=== PATIENT | male | born 1940 | race Caucasian/White ===

== ENCOUNTER 2017-07-03 09:47 | Emergency (ER) | payer MEDICARE ==
--- NOTE | 2017-07-03 10:36 | ED ---
Lower Extremity - HPI Summary HPI Summary: 77-year-old male presents with lesion to right lower leg for the past week. Family states that has the area has been actively bleeding. Family denies any injury. Family has also been increased swelling in his legs. Patient is still able to ambulate. Patient denies any pain. no fever or chills. Patient denies any chest pain or shortness of breath. Family denies any history of congestive heart failure. Patient is not on a blood thinner. No rash. - History of Current Complaint Chief Complaint: EDExtremityLower Stated Complaint: SORE ON LEG Time Seen by Provider: 07/03/17 10:01 Pain Intensity: 0 - Allergies/Home Medications Allergies/Adverse Reactions: Allergies Allergy/AdvReac Type Severity Reaction Status Date / Time MS Sulfa Antibiotics Allergy Intermediate ?hives per Verified 10/25/15 18:09 [Sulfa Antibiotics] family PMH/Surg Hx/FS Hx/Imm Hx Endocrine/Hematology History: Denies: Hx Diabetes Cardiovascular History: Reports: Hx Coronary Artery Disease, Hx Myocardial Infarction, Other Cardiovascular Problems/Disorders - cardiac stent Denies: Hx Hypertension, Hx Pacemaker/ICD History: Denies: Hx Dialysis, Hx Renal Disease Musculoskeletal History: Reports: Hx Arthritis, Other Musculoskeletal History - WALKS WITH CANE, UNSURE WHAT EXACTLY IS WRONG WITH LEGS Sensory History: Reports: Hx Hearing Aid Neurological History: Reports: Hx Transient Ischemic Attacks (TIA), Other Neuro Impairments/Disorders - tia ,new dx mild alzheimers Psychiatric History: Denies: Hx Panic Disorder - Cancer History Cancer Type, Location and Year: bladder cancer dx 2011 no radiation or chemo treatment DCG installation in bladder 2011,? effecting ureter per family Hx Chemotherapy: No Hx Radiation Therapy: No - Surgical History Surgery Procedure, Year, and Place: bladder cancer removal malignancy, knee right 1970, cardiac stent,LT [facility]NEE Infectious Disease History: No Infectious Disease History: Denies: Traveled Outside the [place] in Last 30 Days - Family History Known Family History: Positive: Cardiac Disease - CAD FATHER/BHROTHER - Social History Alcohol Use: None Hx Substance Use: No Substance Use Type: Reports: None Hx Tobacco Use: No Smoking Status (MU): Never Smoked Tobacco Review of Systems Negative: Fever Negative: Chest Pain Negative: Shortness Of Breath Positive: Edema - lower legs Positive: Other - lesion right leg All Other Systems Reviewed And Are Negative: Yes Physical Exam Triage Information Reviewed: Yes Vital Signs On Initial Exam: Initial Vitals Temp Pulse Resp BP Pulse Ox 99.2 F 73 16 119/63 99 07/03/17 09:50 07/03/17 09:50 07/03/17 09:50 07/03/17 09:50 07/03/17 09:50 Vital Signs Reviewed: Yes Appearance: Positive: Well-Appearing Skin: Positive: Warm, Dry, Other - small scab on right lower leg with no surrounding erythema Head/Face: Positive: Normal Head/Face Inspection Eyes: Positive: Normal, Conjunctiva Clear Respiratory/Lung Sounds: Positive: Clear to Auscultation, Breath Sounds Present Cardiovascular: Positive: Normal, RRR Musculoskeletal: Positive: Strength/ROM Intact - bilateral legs, Edema Left, Edema Right, Other - equal +2 pitting edema bilateral legs, good pulses. Negative: Santa Sign Left, Santa Sign Right Diagnostics - Vital Signs Vital Signs Temp Pulse Resp BP Pulse Ox 07/03/17 09:50 99.2 F 73 16 119/63 99 - Laboratory Lab Statement: Any lab studies that have been ordered have been reviewed, and results considered in the medical decision making process. - Ultrasound No standard instances Ultrasound Interpretation: No Acute Changes Ultrasound Interpretation Completed By: Radiologist Lower Extremity Course/Dx - Course Course Of Treatment: 77-year-old male presents with lesion to right lower leg for the past week. Family states that has the area has been actively bleeding. Family denies any injury. Family has also been increased swelling in his legs. Patient is still able to ambulate. Patient denies any pain. no fever or chills. Patient denies any chest pain or shortness of breath. Family denies any history of congestive heart failure. Patient is not on a blood thinner. No rash. on exam has small scab on right leg. +2 pitting edema lower legs. u/s right normal. patient refused lab work. discussed with family and will have follow up with primary for lab work as patient is becoming agitated. patient understand and agrees with plan. - Diagnoses Differential Diagnosis/HQI/PQRI: Positive: Strain, Other - CHF Provider Diagnoses: Bilateral leg edema Discharge - Discharge Plan Condition: Good Disposition: HOME Patient Education Materials: Leg Edema (ED) Referrals: Robb Bates MD [Primary Care Provider] - Additional Instructions: Keep lesion clean Elevate legs Use compression socks Take tyenlol for pain every 6 hours follow up with primary within 5 days Return to ED if develop any new or worsening symptoms
--- NOTE | 2017-07-03 11:25 | RAD ---
INDICATION: Right leg swelling. COMPARISON: There are no prior studies available for comparison. TECHNIQUE: Multiple real-time, color flow and Doppler tracings of the right lower extremity were obtained. FINDINGS: The common femoral, femoral, profunda femoral and popliteal veins all demonstrate normal compressibility, augmentation with compression and phasic response with respiration. The posterior tibial and peroneal veins demonstrate normal compressibility and augmentation with compression. Examination of the peroneal veins is limited. IMPRESSION: NO EVIDENCE FOR DEEP VENOUS THROMBOSIS. SLIGHTLY LIMITED EXAM OF THE CALF.
[2017-07-03 12:08] VITALS: BP 138/75
== END 2017-07-03 12:08 | disposition home or self-care (01) ==
LOC: ED 09:47
DX: R60.0 Localized edema (principal); Z88.2 Allergy status to sulfonamides
CPT/HCPCS: 99283

== ENCOUNTER 2017-07-25 13:04 | Emergency (ER) | payer MEDICARE ==
[2017-07-25] MEDS ORDERED: Haloperidol TAB* 1 MG PO ONE (13:42)
[2017-07-25] MEDS ORDERED: Tetan/Diph/Pertus SYR(Tdap)* 0.5 ML SYR(BOOSTRIX) use SYR IM ONE (14:19)
--- NOTE | 2017-07-25 14:20 | RAD ---
HISTORY: Low back pain, history of prostate cancer COMPARISONS: MRI of the lumbar spine dated September 07, 2011 VIEWS: 1 , frontal view of the lumbar spine. According to the technologist notes, the patient was unable to tolerate any further imaging FINDINGS: ALIGNMENT: There is a mild levoscoliotic curvature of the spine. VERTEBRAL BODIES: There is preservation of the vertebral body heights. There is anterolateral marginal osteophyte formation. JOINTS: There is diffuse facet osteoarthritis. INTERVERTEBRAL DISCS: There is diffuse loss of intervertebral disc height. SOFT TISSUE: Unremarkable. OTHER: The pelvis is unremarkable. The lung bases are clear. IMPRESSION: LIMITED SINGLE FRONTAL PROJECTION OF THE LUMBAR SPINE. DEGENERATIVE DISC DISEASE AND OSTEOARTHRITIS.
[2017-07-25 14:28] LABS: ABS Basophils 0.1 10^3/ul (0-0.2); ABS Eosinophils 0.1 10^3/ul (0-0.6); ABS Lymphocytes 3.2 10^3/ul (1.0-4.8); ABS Monocytes 0.6 10^3/ul (0-0.8); ABS Neutrophils 5.4 10^3/ul (1.5-7.7); ABS Nucleated RBC 0 10^3/ul; Eosinophil % 1.1 % (0-6); Hematocrit 39 % (42-52); Hemoglobin 13.2 g/dl (14.0-18.0); Mean Corpuscular HGB Conc 34 g/dl (31-36); Mean Corpuscular Hemoglobin 30 pg (27-31); Mean Corpuscular Volume 89 fL (80-94); Mean Platelet Volume 7 um3 (7.4-10.4); Nucleated Red Blood Cells % 0; Platelet Count 284 10^3/ul (150-450); Red Blood Count 4.38 10^6/ul (4.0-5.4); Red Cell Distribution Width 13 % (10.5-15); White Blood Count 9.4 10^3/ul (3.5-10.8)
[2017-07-25 14:42] LABS: EGFR Non-African American 88.4 (>60)
[2017-07-25 14:59] VITALS: BP 153/84
--- NOTE | 2017-08-01 23:39 | ED ---
Siri Wells Julia, scribed for Robb Gonzalez MD on 07/25/17 at 1346 . Complex/Multi-Sys Presentation - HPI Summary HPI Summary: This patient is a 77 year old M presenting to [facility] accompanied by his s/p fall at 02:00 this morning with a right facial laceration. Patient denies LOC His reports improved bleeding from initial time of laceration. She states that his current mental status is usual for him. She additionally reports back pain for the past couple months that intermittently radiates to the RLE. Patient denies current back pain. Patient has unstable gait at baseline. Patient has hx of Alzheimers. Patient was referred from Dr. Bates. - History Of Current Complaint Chief Complaint: EDFlankPain Time Seen by Provider: 07/25/17 13:35 Hx Obtained From: Patient, Family/Licensed Master Social Worker Hx From Patient Unobtainable Due To: Altered Mental Status - Alzheimer's Onset/Duration: Sudden Onset, Other - back pain for months Location: Negative - denies pain, Pain At: - back Associated Signs And Symptoms: Positive: Back Pain, Other - laceration - Allergies/Home Medications Allergies/Adverse Reactions: Allergies Allergy/AdvReac Type Severity Reaction Status Date / Time Sulfa (Sulfonamide Allergy Hives Verified 07/25/17 13:32 Antibiotics) Home Medications: Home Medications Donepezil TAB* [Aricept 5 MG TAB*] 10 mg PO DAILY 07/25/17 [History Confirmed ] Memantine TAB* [Namenda TAB*] 10 mg PO BID 07/25/17 [History Confirmed 07/25/17] Multivitamins/Minerals TAB* [Theragran/minerals TAB*] 1 tab PO DAILY 07/25/17 [ History Confirmed 07/25/17] Nitroglycerin TAB 0.4 MG* 0.4 mg SL Q5M PRN 07/25/17 [History Confirmed 07/25/17 ] PMH/Surg Hx/FS Hx/Imm Hx Endocrine/Hematology History: Denies: Hx Diabetes Cardiovascular History: Reports: Hx Coronary Artery Disease, Hx Myocardial Infarction, Other Cardiovascular Problems/Disorders - cardiac stent Denies: Hx Hypertension, Hx Pacemaker/ICD History: Denies: Hx Dialysis, Hx Renal Disease Musculoskeletal History: Reports: Hx Arthritis, Other Musculoskeletal History - WALKS WITH CANE, UNSURE WHAT EXACTLY IS WRONG WITH LEGS Sensory History: Reports: Hx Hearing Aid Neurological History: Reports: Hx Transient Ischemic Attacks (TIA), Other Neuro Impairments/Disorders - alzheimers Psychiatric History: Denies: Hx Panic Disorder - Cancer History Cancer Type, Location and Year: bladder cancer dx 2011 no radiation or chemo treatment DCG installation in bladder 2011,? effecting ureter per family Hx Chemotherapy: No Hx Radiation Therapy: No - Surgical History Surgery Procedure, Year, and Place: bladder cancer removal malignancy, knee right 1970, cardiac stent,LT KNEE Infectious Disease History: No Infectious Disease History: Denies: Traveled Outside the [place] in Last 30 Days - Family History Known Family History: Positive: Cardiac Disease - CAD FATHER/BROTHER - Social History Alcohol Use: None Hx Substance Use: No Substance Use Type: Reports: None Hx Tobacco Use: No Smoking Status (MU): Never Smoked Tobacco Review of Systems Positive: Myalgia - back pain Positive: Other - laceration to right face All Other Systems Reviewed And Are Negative: Yes Physical Exam - Summary Physical Exam Summary: Appearance: Well appearing, no pain distress, patient is agitated and confused Skin: warm, dry, reflects adequate perfusion Head/face: linear laceration to right cheek without bleeding Eyes: EOMI, CHRISTINE ENT: normal Neck: supple, non-tender Respiratory: CTA, breath sounds present Cardiovascular: RRR, pulses symmetrical Abdomen: non-tender, soft Bowel: present Musculoskeletal: normal, strength/ROM intact Neuro: normal, sensory motor intact, A&Ox3 Triage Information Reviewed: Yes Vital Signs On Initial Exam: Initial Vitals Temp Pulse Resp BP Pulse Ox 97.6 F 75 18 146/91 98 07/25/17 13:10 07/25/17 13:10 07/25/17 13:10 07/25/17 13:10 07/25/17 13:10 Vital Signs Reviewed: Yes Diagnostics - Vital Signs Vital Signs Temp Pulse Resp BP Pulse Ox 07/25/17 13:30 161/92 07/25/17 13:10 97.6 F 75 18 146/91 98 - Laboratory Result Diagrams: 07/25/17 14:18 07/25/17 14:18 Lab Statement: Any lab studies that have been ordered have been reviewed, and results considered in the medical decision making process. Complex Multi-Symp Course/Dx Course Of Treatment: Patient presents with facial laceration s/p fall around 02: 00 this morning. Patient and deny LOC. reports back pain that intermittently radiates to the RLE for the past two months. Bloodwork was obtained and was unremarkable. Imaging was unattainable as patient was uncooperative and unable to remain still. Laceration was not repaired, as the wound occured roughly 12 hours ago. Patient was given Haldol and a Tetnus shot. - Diagnoses Provider Diagnoses: OA (osteoarthritis of spine), Facial laceration, History of prostate cancer, Dementia Discharge - Discharge Plan Condition: Good Disposition: HOME Prescriptions: Haloperidol TAB* [Haldol TAB*] 1 mg PO TID PRN 20 Days #60 tab PRN Reason: Agitation - Dangerous Patient Education Materials: Laceration (ED), Alzheimer Disease (DC) Referrals: Robb Bates MD [Primary Care Provider] - The documentation as recorded by the Siri marsh Julia accurately reflects the service I personally performed and the decisions made by , Robb Gonzalez MD.
== END 2017-07-25 14:58 | disposition home or self-care (01) ==
LOC: ED 13:04
DX: S01.81XA Laceration without foreign body of other part of head, initial encounter (principal); M51.36 Other intervertebral disc degeneration, lumbar region; X58.XXXA Exposure to other specified factors, initial encounter; Y92.9 Unspecified place or not applicable; G30.9 Alzheimer's disease, unspecified; F02.80 Dementia in other diseases classified elsewhere, unspecified severity, without behavioral disturbance, psychotic disturbance, mood disturbance, and anxiety; M54.9 Dorsalgia, unspecified; M47.9 Spondylosis, unspecified; Z85.46 Personal history of malignant neoplasm of prostate; I25.2 Old myocardial infarction; I25.10 Atherosclerotic heart disease of native coronary artery without angina pectoris
CPT/HCPCS: 36415; 72100; 80053; 85025; 90471; 90715; 99282; A9270-GY

== ENCOUNTER 2017-09-07 13:12 | Inpatient (IN) | payer MEDICARE ==
[2017-09-07] MEDS ORDERED: NS 0.9% 1000 ML* 1,000 ML IV ONE (13:46)
[2017-09-07 14:34] LABS: ABS Basophils 0.2 10^3/ul (0-0.2); ABS Eosinophils 0.1 10^3/ul (0-0.6); ABS Lymphocytes 3.7 10^3/ul (1.0-4.8); ABS Monocytes 0.8 10^3/ul (0-0.8); ABS Neutrophils 7.4 10^3/ul (1.5-7.7); ABS Nucleated RBC 0 10^3/ul; Eosinophil % 1.2 % (0-6); Hematocrit 36 % (42-52); Hemoglobin 12.5 g/dl (14.0-18.0); Lymphocyte % 30.1 % (25-47); Mean Corpuscular HGB Conc 35 g/dl (31-36); Mean Corpuscular Hemoglobin 30 pg (27-31); Mean Corpuscular Volume 87 fL (80-94); Mean Platelet Volume 6.2 um3 (7.4-10.4); Nucleated Red Blood Cells % 0.1; Platelet Count 318 10^3/ul (150-450); Red Blood Count 4.15 10^6/ul (4.0-5.4); Red Cell Distribution Width 14 % (10.5-15); White Blood Count 12.2 10^3/ul (3.5-10.8)
[2017-09-07 14:40] LABS: INR 1.03 (0.77-1.02)
[2017-09-07 14:52] LABS: EGFR Non-African American 71.4 (>60)
--- NOTE | 2017-09-07 14:52 | RAD ---
INDICATION: Cough. COMPARISON: Comparison is made with a prior study from September 22, 2015. TECHNIQUE: A portable view of the chest was obtained. FINDINGS: Cardiac and mediastinal contours appear to be within normal limits. There is a small infiltrate at the medial right lung base. The lungs are otherwise clear. No pleural effusion is seen. IMPRESSION: SMALL RIGHT BASILAR INFILTRATE.
[2017-09-07] MEDS ORDERED: Azithromycin IV(*) 500 MG in NS 0.9% 250 ML* 250 ML IVPB ONE (15:06)
[2017-09-07] MEDS ORDERED: cefTRIAXone(*) 1 GM in NS 0.9% 50 ML* 50 ML IVPB ONE (15:07)
[2017-09-07] MEDS ORDERED: Acetaminophen TAB* 325 MG PO PRN (16:00)
[2017-09-07] MEDS ORDERED: Ondansetron INJ* 2 MG/ML VIAL IV PRN (16:00)
[2017-09-07] MEDS ORDERED: Haloperidol TAB* 0.5 MG PO PRN (16:04)
[2017-09-07] MEDS ORDERED: Magnesium Sulfate 2 GM IV* 2 GM/50 ML BAG IVPB ONE (16:14)
[2017-09-07] MEDS ORDERED: NS 0.9% 1000 ML* 1,000 ML IV SCH (16:15)
--- NOTE | 2017-09-07 18:53 | ED ---
Siri Wells Julia, scribed for Kaitlyn Weinberg MD on 09/07/17 at 1459 . Altered Mental Status - HPI Summary HPI Summary: This patient is a 77 year old M BIBA to [facility] accompanied by his son Dallas and his due to decreased responsiveness and fatigue for five days. His son reports that he has been sleeping more and has been more unstable and slower while walking. He has been drinking fluids but has a decreased appetite and is unwilling to get up for dinner. Son reports a productive cough with dark sputum. Pt c/o to son about chills and left hip pain with movement. Dallas states a recent XR of his left hip revealed no cancer but was indicative of arthritis. Son reports he has last 17 pounds since June 2017. Pt did not take his regular medications or eat this morning. Son additionally report a stage 1 sore over his coccyx with peeling skin and recent red patches on bilat buttocks per pt's aides at home. Medication list reviewed with family. Pt has advanced Alzheimers dz. Pt is usually combative and often spits. Family spoke with Dr. Bates about care user acceptance tester. Pt is DNR. Pt was seen in ED by me on 08/26/17, where he more combative and less lethargic compared to today. Pt is level 5 caveat due to advanced dementia and AMS. - History Of Current Complaint Chief Complaint: EDAltMentalStatus Stated Complaint: INCREASED LETHARGY Time Seen by Provider: 09/07/17 13:19 Hx Obtained From: Family/Furnace Combustion Analyst - son Dallas, and , Medical Records - , ED visit with Dr. Weinberg as attending Hx From Patient Unobtainable Due To: Dementia Onset/Duration: Still Present Timing: Constant, Lasting Days - five Severity Initially: Moderate Severity Currently: Moderate Character: Lethargy Aggravating Factor(s): Nothing Alleviating Factor(s): Nothing Associated Signs And Symptoms: Positive: Weakness - generalized, productive cough, difficulty walking. Negative: Fever Related History: Other: - seen in ED on 08/26/17 with increased agitation, limited work up and treatment allowed by pt, but labs and urine showed no significant abnormality. - Allergies/Home Medications Allergies/Adverse Reactions: Allergies Allergy/AdvReac Type Severity Reaction Status Date / Time Sulfa (Sulfonamide Allergy Hives Verified 08/26/17 10:26 Antibiotics) Home Medications: Home Medications Acetaminophen [Tylenol Extra Strength] 500 - 1,000 mg PO Q8H PRN 09/07/17 [ History Confirmed 09/07/17] Haloperidol TAB* [Haldol TAB*] 0.5 mg PO TID PRN 09/07/17 [History Confirmed ] Niacin [Kp Niacin] 2,000 mg PO DAILY 09/07/17 [History Confirmed 09/07/17] PMH/Surg Hx/FS Hx/Imm Hx Previously Healthy: No Endocrine/Hematology History: Denies: Hx Diabetes Cardiovascular History: Reports: Hx Coronary Artery Disease, Hx Myocardial Infarction, Other Cardiovascular Problems/Disorders - cardiac stent Denies: Hx Hypertension, Hx Pacemaker/ICD History: Denies: Hx Dialysis, Hx Renal Disease Musculoskeletal History: Reports: Hx Arthritis Sensory History: Reports: Hx Hearing Aid Neurological History: Reports: Hx CVA, Hx Dementia - Alzheimer's, Hx Transient Ischemic Attacks (TIA) Psychiatric History: Denies: Hx Panic Disorder - Cancer History Cancer Type, Location and Year: bladder cancer dx 2011 no radiation or chemo treatment BCG installation in bladder 2011, prostate CA Hx Chemotherapy: No Hx Radiation Therapy: No - Surgical History Surgery Procedure, Year, and Place: bladder surg for malignancy, knee right 1969 , cardiac stent,LT KNEE Infectious Disease History: No Infectious Disease History: Denies: Traveled Outside the [place] in Last 30 Days - Family History Known Family History: Positive: Cardiac Disease - CAD FATHER/BROTHER - Social History Occupation: Retired - [employer] director Lives: With Family Alcohol Use: None Hx Substance Use: No Substance Use Type: Reports: None Hx Tobacco Use: No Smoking Status (MU): Never Smoked Tobacco Review of Systems Positive: Chills, Fatigue Cardiovascular: Negative Positive: Cough Positive: frequency Positive: Other - early skin breakdown on coccyx and buttocks Positive: Weakness Positive: Other - irritable All Other Systems Reviewed And Are Negative: No - Comments Additional Review of Systems Comments: ROS is limited due to level 5 caveat due to dementia. Physical Exam - Summary Physical Exam Summary: Appearance: Ill-appearing, no pain distress, thin, prefers eyes closed but rouses to verbal and tactile stimuli Skin: Warm, color reflects adequate perfusion Head: Normal Head/Face inspection, atraumatic Eyes: Conjunctiva clear, PERRL, EOMI ENT: Normal inspection Neck: Supple, no nodes, no JVD. Respiratory: Lungs clear, decreased BS throughout, no respiratory distress, deep congested cough Cardio: RRR, No murmur, pulses normal, brisk capillary refill, BP is 135/81 Abdomen: soft, nontender, no masses Bowel sounds: present Musculoskeletal: Strength Intact/ ROM intact. No calf tenderness. No edema. Stage 1 ulcer at coccyx Psychological: sleepy, but irritable when roused Neuro: muscle tone normal, no focal deficit, dementia, moves all extremities Triage Information Reviewed: Yes Vital Signs On Initial Exam: Initial Vitals Temp Pulse Resp BP Pulse Ox 99.0 F 76 16 135/77 96 09/07/17 13:21 09/07/17 13:21 09/07/17 13:21 09/07/17 13:21 09/07/17 13:21 Vital Signs Reviewed: Yes Diagnostics - Vital Signs Vital Signs Temp Pulse Resp BP Pulse Ox 09/07/17 14:03 80 146/98 97 09/07/17 13:30 76 135/77 95 09/07/17 13:29 77 96 09/07/17 13:21 99.0 F 76 16 135/77 96 - Laboratory Lab Results: Lab Results 09/07/17 09/07/17 09/07/17 Range/Units 14:03 14:20 14:20 WBC 12.2 H (3.5-10.8) 10^3/ul RBC 4.15 (4.0-5.4) 10^6/ul Hgb 12.5 L (14.0-18.0) g/dl Hct 36 L (42-52) % MCV 87 (80-94) fL MCH 30 (27-31) pg MCHC 35 (31-36) g/dl RDW 14 (10.5-15) % Plt Count 318 (150-450) 10^3/ul MPV 6.2 L (7.4-10.4) um3 Neut % (Auto) 61.0 (38-83) % Lymph % (Auto) 30.1 (25-47) % Noble % (Auto) 6.3 (0-7) % Eos % (Auto) 1.2 (0-6) % Baso % (Auto) 1.4 (0-2) % Absolute Neuts (auto) 7.4 (1.5-7.7) 10^3/ul Absolute Lymphs (auto) 3.7 (1.0-4.8) 10^3/ul Absolute Monos (auto) 0.8 (0-0.8) 10^3/ul Absolute Eos (auto) 0.1 (0-0.6) 10^3/ul Absolute Basos (auto) 0.2 (0-0.2) 10^3/ul Absolute Nucleated RBC 0 10^3/ul Nucleated RBC % 0.1 INR (Anticoag Therapy) (0.77-1.02) Sodium 135 L (139-145) mmol/L Potassium 4.2 (3.5-5.0) mmol/L Chloride 103 (101-111) mmol/L Carbon Dioxide 25 (22-32) mmol/L Anion Gap 7 (2-11) mmol/L BUN 11 (6-24) mg/dL Creatinine 1.01 (0.67-1.17) mg/dL Est GFR ( Amer) 91.9 (>60) Est GFR (Non-Af Amer) 71.4 (>60) BUN/Creatinine Ratio 10.9 (8-20) Glucose 102 H (70-100) mg/dL Lactic Acid (0.5-2.0) mmol/L Calcium 8.5 L (8.6-10.3) mg/dL Magnesium 1.7 L (1.9-2.7) mg/dL Total Bilirubin 0.80 (0.2-1.0) mg/dL AST 20 (13-39) U/L ALT 12 (7-52) U/L Alkaline Phosphatase 209 H (34-104) U/L Total Creatine Kinase 44 (10-223) U/L Troponin I Pending Total Protein 5.9 L (6.4-8.9) g/dL Albumin 3.2 (3.2-5.2) g/dL Globulin 2.7 (2-4) g/dL Albumin/Globulin Ratio 1.2 (1-3) TSH Pending Salicylates Pending Acetaminophen Pending Influenza A (Rapid) Negative (Negative) Influenza B (Rapid) Negative (Negative) 09/07/17 09/07/17 Range/Units 14:20 14:20 WBC (3.5-10.8) 10^3/ul RBC (4.0-5.4) 10^6/ul Hgb (14.0-18.0) g/dl Hct (42-52) % MCV (80-94) fL MCH (27-31) pg MCHC (31-36) g/dl RDW (10.5-15) % Plt Count (150-450) 10^3/ul MPV (7.4-10.4) um3 Neut % (Auto) (38-83) % Lymph % (Auto) (25-47) % Noble % (Auto) (0-7) % Eos % (Auto) (0-6) % Baso % (Auto) (0-2) % Absolute Neuts (auto) (1.5-7.7) 10^3/ul Absolute Lymphs (auto) (1.0-4.8) 10^3/ul Absolute Monos (auto) (0-0.8) 10^3/ul Absolute Eos (auto) (0-0.6) 10^3/ul Absolute Basos (auto) (0-0.2) 10^3/ul Absolute Nucleated RBC 10^3/ul Nucleated RBC % INR (Anticoag Therapy) 1.03 H (0.77-1.02) Sodium (139-145) mmol/L Potassium (3.5-5.0) mmol/L Chloride (101-111) mmol/L Carbon Dioxide (22-32) mmol/L Anion Gap (2-11) mmol/L BUN (6-24) mg/dL Creatinine (0.67-1.17) mg/dL Est GFR ( Amer) (>60) Est GFR (Non-Af Amer) (>60) BUN/Creatinine Ratio (8-20) Glucose (70-100) mg/dL Lactic Acid 0.9 (0.5-2.0) mmol/L Calcium (8.6-10.3) mg/dL Magnesium (1.9-2.7) mg/dL Total Bilirubin (0.2-1.0) mg/dL AST (13-39) U/L ALT (7-52) U/L Alkaline Phosphatase (34-104) U/L Total Creatine Kinase (10-223) U/L Troponin I Total Protein (6.4-8.9) g/dL Albumin (3.2-5.2) g/dL Globulin (2-4) g/dL Albumin/Globulin Ratio (1-3) TSH Salicylates Acetaminophen Influenza A (Rapid) (Negative) Influenza B (Rapid) (Negative) Result Diagrams: 09/07/17 14:20 09/07/17 14:20 Lab Statement: Any lab studies that have been ordered have been reviewed, and results considered in the medical decision making process. - Radiology CXR Radiology Interpretation Completed By: Radiologist - SMALL RIGHT BASILAR INFILTRATE. ED Physician has reviewed this report. - EKG 1358 Cardiac Rate: NL EKG Rhythm: Sinus Rhythm - at [address] Segment: Non-Specific Ectopy: None EKG Interpretation: nml AVIVCT, nml QTc, nml axis EKG Comparison: No Significant Change - 09/22/15 Re-Evaluation - Re-Evaluation 1 Re-Evaluation Time: 15:03 Change: Unchanged Comment: Pt and family are informed of admission and dx of pneumonia, noted on CXR. Altered Mental Statu Course/Dx - Course Course Of Treatment: Pt presents with increased lethargy, productive cough with dark sputum, and chills. An EKG is of no acute concern. A CXR reveals PNA. Because of PNA will order blood cultures in case of sepsis. Will attempt to get blood cultures before administering abx. Antibiotics ordered to cover CAP. Flu swab is negative. Dr. Cochran agrees to admit this patient. NOTE: blood cultures not obtained prior to antibiotics, due to pt being combative, irritable and with advanced dementia. With diagnosis of lethargy and pneumonia , it is dangerous to withhold antibiotics to obtain blood cultures in this combative patient. - Diagnoses Differential Diagnosis/HQI/PQRI: CVA, Hypoxia, Medication Reaction, Metabolic Disorder, Sepsis, Other - pneumonia Provider Diagnoses: PNA (pneumonia), Alzheimer's dementia with behavioral disturbance - Provider Notifications Discussed Care Of Patient With: Donovan Cochran - hospitalist Time Discussed With Above Provider: 15:01 Instructed by Provider To: Admit As Inpatient Discharge - Sign-Out/Discharge Documenting (check all that apply): Discharge - admit - Discharge Plan Condition: Stable Disposition: ADMITTED TO [facility] - Billing Disposition and Condition Condition: STABLE [place] [place] The documentation as recorded by the scribSiri siddiqui Julia accurately reflects the service I personally performed and the decisions made by me, Kaitlyn Weinberg MD.
--- NOTE | 2017-09-07 18:54 | HP ---
CC: Dr. Bates* HISTORY AND PHYSICAL: DATE OF ADMISSION: 09/07/17 PRIMARY CARE PROVIDER: Dr. Bates. ATTENDING PHYSICIAN WHILE IN THE HOSPITAL: Isra Cochran MD* (report dictated by Ana Palacio NP) CHIEF COMPLAINT: 1. Weakness. 2. Cough. HISTORY OF PRESENT ILLNESS: I would like to preface this report by saying that the patient has a significant amount of underlying dementia. He is clearly not able to participate in the HPI gathering or the review of systems gathering. Most of the HPI is obtained from discussion with the patient's family and the patient's son who has been residing with him. In short, Mr. Robledo is a 77-year- old male patient. He carries a history of significant dementia. He has had a history of bladder/prostate cancer, history of CAD, TIA, and a history of an PR in the past requiring stenting. He comes in to our ER today. The son and the state that in the last couple of weeks, the patient has been noted to not acting himself, a little more confused, but particularly in the last week, he has had much more coughing, noted lateral in his chest. He has been more weak. Over the last couple of days, he has been unable to get warm, he has been very cold. The thinks that he may have had a fever. His appetite has been down. He has just been lethargic, weak and not acting himself. They were concerned because his activity level is declining, he was not acting himself and they brought the patient to be evaluated today in the ER. He was evaluated. He was ultimately found to have a pneumonia. There has been no recent report of sick contacts. There has been no reported fevers. There has been no reports of nausea, vomiting, or diarrhea or reports of pain. He came in , was evaluated, ultimately found to have pneumonia and we were asked to evaluate for admission. PAST MEDICAL HISTORY: Significant for: 1. Prostate cancer. 2. Bladder cancer. 3. CAD. 4. TIA. 5. PR. 6. Dementia. PAST SURGICAL HISTORY: The patient has had heart catheterization. MEDICATIONS: The home medications include: 1. Tylenol 500 to 1000 mg every 8 hours as needed. 2. Niacin 2000 mg p.o. daily. 3. Nitro 0.4 mg sublingual q.5 minutes p.r.n. x3 for chest pain. 4. Namenda 10 mg p.o. b.i.d. 5. Haldol 0.5 mg p.o. t.i.d. as needed. 6. Aricept 10 mg p.o. daily. ALLERGIES: To medications include SULFA DRUGS. FAMILY HISTORY: Reviewed and noncontributory. SOCIAL HISTORY: The patient is a former smoker. He does not drink alcohol. Surrogate decision makers are his son and . REVIEW OF SYSTEMS: Unable to be obtained given the patient's underlying dementia. PHYSICAL EXAMINATION GENERAL: At this time, Mr. Robledo is a 77-year-old male patient. He is sitting in the ED stretcher. He does not appear to be in any acute distress. VITAL SIGNS: Blood pressure 146/98, pulse of 80, respirations were 16, his O2 sat is 97%, temperature 99.0. HEENT: Head: Atraumatic. Eyes: EOMs intact. Sclerae anicteric, not pale. Throat: Oral mucosa appears to be moist. No oropharyngeal erythema. NECK: Supple. LUNGS: Difficult exam because the patient was not willing to sit forward, but he had no rhonchi noted in the upper lobes. He did have diminished breath sounds in the bases. HEART: Heart sounds S1, S2. Regular rate and rhythm. No murmurs, rubs, or gallops. ABDOMEN: Soft, flat, nontender. Bowel sounds were present. EXTREMITIES: Pulses were 2+ throughout. He is moving all 4 extremities with 5/ 5 strength. NEUROLOGIC: He is awake. He is alert. He is oriented to himself only. He had no gross obvious focal deficits. SKIN: Intact with the exception he does have a stage I pressure ulcer under sacrum. DIAGNOSTIC STUDIES/LAB DATA: WBC 12.2, RBC of 4.15, hemoglobin 12.5, hematocrit 36, platelet count of 318. INR 1.03. Sodium 135, potassium 4.2, chloride of 103, bicarb 25, BUN 11, creatinine 1.01, glucose 102. Lactate 0.9. Mag 1.7. Total bili 0.8, AST 20, ALT 12, alk phos 209. CK 44. Troponin 0.03. Albumin of 3.2. TSH normal. Toxicology negative. Serology negative. Chest x-ray shows small right basilar infiltrate. EKG today shows a normal sinus rhythm, rate of 78, no ST elevations or T-wave inversions. It was reviewed with previous EKG, it is similar. Old medical records were reviewed. ASSESSMENT AND PLAN: Mr. Robledo is a 77-year-old male patient coming in to the emergency department today with complaints of weakness, fatigue, not acting himself over the last several days. In addition to this, just decreased appetite. We were asked to evaluate for admission. He will be admitted under inpatient status for: 1. Pneumonia. At this point, unfortunately, we were unable to get blood cultures given the patient's advanced dementia. He is very combative and there was deemed a safety issue that we could not get them, but nonetheless he does need to be treated with antibiotics. So, I am going to go ahead and give him antibiotics. He received 1 L of fluid here in the ED. We will give him another liter of fluid overnight. I will try to get legionella antigen if he is able to cooperate, sputum cultures as well and we will continue Rocephin and azithromycin. 2. Dementia. We will continue with supportive care. Continue meds as prescribed. I did order a social work consult as the patient's family need help at home. So, I have ordered a social work consult. 3. Hypomagnesemia. I have ordered replacement for this. 4. History of prostate and bladder cancer. Follow up with his primary. 5. History of coronary artery disease and myocardial infarction. Follow up with primary. 6. DVT prophylaxis. High risk, placed on heparin subcu. 7. Code status. He is a DNR. 8. Fluids, electrolytes, and nutrition. He can have a regular diet. TIME SPENT: On admission 60 minutes, greater than half the time spent face-to- face with the patient obtaining my history and physical; other half time spent going over the plan of care with the patient and implementing plan of care. I discussed the plan of care with my attending, Dr. Cochran; he is in agreement. ANA PALACIO NP [id number]/[facility] #: [id number] [facility]OSPITALMike
[2017-09-07] MEDS ORDERED: Ziprasidone IM INJ* 20 MG/ML VIAL IM ONE (20:10)
[2017-09-07] MEDS: Heparin VIAL(*) 5000 UNITS/ML VIAL (FIVE THOUSAND) SUBCUT SCH (23:17)
[2017-09-07] MEDS: Memantine TAB* 10 MG PO SCH (23:17)
[2017-09-08] MEDS: Heparin VIAL(*) 5000 UNITS/ML VIAL (FIVE THOUSAND) SUBCUT SCH ×3 (06:08→20:28)
[2017-09-08 06:26] LABS: ABS Basophils 0.1 10^3/ul (0-0.2); ABS Eosinophils 0.2 10^3/ul (0-0.6); ABS Lymphocytes 4.3 10^3/ul (1.0-4.8); ABS Monocytes 0.9 10^3/ul (0-0.8); ABS Neutrophils 6.5 10^3/ul (1.5-7.7); ABS Nucleated RBC 0 10^3/ul; Hematocrit 34 % (42-52); Hemoglobin 11.9 g/dl (14.0-18.0); Lymphocyte % 35.7 % (25-47); Mean Corpuscular HGB Conc 35 g/dl (31-36); Mean Corpuscular Hemoglobin 30 pg (27-31); Mean Corpuscular Volume 87 fL (80-94); Mean Platelet Volume 6.1 um3 (7.4-10.4); Nucleated Red Blood Cells % 0; Platelet Count 312 10^3/ul (150-450); Red Blood Count 3.94 10^6/ul (4.0-5.4); Red Cell Distribution Width 14 % (10.5-15)
[2017-09-08 06:44] LABS: EGFR Non-African American 66.8 (>60)
[2017-09-08 06:45] LABS: INR 1.05 (0.77-1.02)
[2017-09-08] MEDS: Donepezil TAB* 5 MG PO SCH (08:31)
[2017-09-08] MEDS: Memantine TAB* 10 MG PO SCH ×2 (08:32→19:46)
[2017-09-08] MEDS: Niacin ER TAB* 500 MG PO SCH (08:32)
--- NOTE | 2017-09-08 09:05 | PN ---
Subjective Date of Service: 09/08/17 Interval History: Patient not able to make his needs known. Objective Active Medications: Acetaminophen (Tylenol Tab*) 650 mg PO Q4H PRN PRN Reason: FEVER/PAIN Last Admin: 09/08/17 03:00 Dose: 650 mg Donepezil HCl (Aricept Tab*) 10 mg PO DAILY [facility]ENDING [facility] TO [facility] Last Admin: 09/08/17 08:31 Dose: 10 mg Haloperidol (Haldol Tab*) 0.5 mg PO TID PRN PRN Reason: AGITATION - DANGEROUS Last Admin: 09/07/17 20:06 Dose: 0.5 mg Heparin Sodium (Porcine) (Heparin Vial(*)) 5,000 units SUBCUT Q8HR [facility]ENDING [facility] TO [facility] Last Admin: 09/08/17 06:08 Dose: Not Given Azithromycin 500 mg/ Sodium (Chloride) 250 mls @ 250 mls/hr IVPB Q24H PROSPER Ceftriaxone Sodium 1,000 mg/ (Sodium Chloride) 50 mls @ 200 mls/hr IVPB Q24H PENDING SALE TO [facility] Memantine (Namenda Tab*) 10 mg PO BID PENDING S[facility] TO [facility] Last Admin: 09/08/17 08:32 Dose: 10 mg Niacin (Niaspan Er Tab*) 2,000 mg PO DAILY [facility]ENDING [facility] TO [facility] Last Admin: 09/08/17 08:32 Dose: 2,000 mg Ondansetron HCl (Zofran Inj*) 4 mg IV Q6H PRN PRN Reason: NAUSEA Vital Signs - 8 hr 09/08/17 09/08/17 09/08/17 07:12 07:43 07:48 Temperature 99.5 F 99.7 F Pulse Rate 77 Respiratory 20 Rate Blood Pressure 132/77 (mmHg) O2 Sat by Pulse 97 97 Oximetry 09/08/17 08:00 Temperature Pulse Rate Respiratory 16 Rate Blood Pressure (mmHg) O2 Sat by Pulse Oximetry Oxygen Devices in Use Now: None Appearance: Alert, partly up in bed. Neutral affect. Looks comfortable. No cough during my visit. Eyes: No Scleral Icterus Neck: NL Appearance and Movements; NL JVP, No Thyroid Enlargement, Masses Respiratory: Symmetrical Chest Expansion and Respiratory Effort, Clear to Auscultation, Clear to Percussion Extremities: No Edema, No Clubbing, Cyanosis, - Skin: No Rash or Ulcers, No Nodules or Sclerosis, - Neurological: NL Sensation - Functionally non-verbal. Very passive. No tremor. Result Diagrams: 09/08/17 06:20 09/08/17 06:20 Additional Lab and Data: Lab Results 09/07/17 09/07/17 09/07/17 Range/Units 14:03 14:20 14:20 WBC 12.2 H (3.5-10.8) 10^3/ul RBC 4.15 (4.0-5.4) 10^6/ul Hgb 12.5 L (14.0-18.0) g/dl Hct 36 L (42-52) % MCV 87 (80-94) fL MCH 30 (27-31) pg MCHC 35 (31-36) g/dl RDW 14 (10.5-15) % Plt Count 318 (150-450) 10^3/ul MPV 6.2 L (7.4-10.4) um3 Neut % (Auto) 61.0 (38-83) % Lymph % (Auto) 30.1 (25-47) % [place] % (Auto) 6.3 (0-7) % Eos % (Auto) 1.2 (0-6) % Baso % (Auto) 1.4 (0-2) % Absolute Neuts (auto) 7.4 (1.5-7.7) 10^3/ul Absolute Lymphs (auto) 3.7 (1.0-4.8) 10^3/ul Absolute Monos (auto) 0.8 (0-0.8) 10^3/ul Absolute Eos (auto) 0.1 (0-0.6) 10^3/ul Absolute Basos (auto) 0.2 (0-0.2) 10^3/ul Absolute Nucleated RBC 0 10^3/ul Nucleated RBC % 0.1 INR (Anticoag Therapy) (0.77-1.02) Sodium 135 L (139-145) mmol/L Potassium 4.2 (3.5-5.0) mmol/L Chloride 103 (101-111) mmol/L Carbon Dioxide 25 (22-32) mmol/L Anion Gap 7 (2-11) mmol/L BUN 11 (6-24) mg/dL Creatinine 1.01 (0.67-1.17) mg/dL Est GFR ( Amer) 91.9 (>60) Est GFR (Non-Af Amer) 71.4 (>60) BUN/Creatinine Ratio 10.9 (8-20) Glucose 102 H (70-100) mg/dL Lactic Acid (0.5-2.0) mmol/L Calcium 8.5 L (8.6-10.3) mg/dL Magnesium 1.7 L (1.9-2.7) mg/dL Total Bilirubin 0.80 (0.2-1.0) mg/dL AST 20 (13-39) U/L ALT 12 (7-52) U/L Alkaline Phosphatase 209 H (34-104) U/L Total Creatine Kinase 44 (10-223) U/L Troponin I Pending Total Protein 5.9 L (6.4-8.9) g/dL Albumin 3.2 (3.2-5.2) g/dL Globulin 2.7 (2-4) g/dL Albumin/Globulin Ratio 1.2 (1-3) TSH Pending Salicylates Pending Acetaminophen Pending Influenza A (Rapid) Negative (Negative) Influenza B (Rapid) Negative (Negative) 09/07/17 09/07/17 Range/Units 14:20 14:20 WBC (3.5-10.8) 10^3/ul RBC (4.0-5.4) 10^6/ul Hgb (14.0-18.0) g/dl Hct (42-52) % MCV (80-94) fL MCH (27-31) pg MCHC (31-36) g/dl RDW (10.5-15) % Plt Count (150-450) 10^3/ul MPV (7.4-10.4) um3 Neut % (Auto) (38-83) % Lymph % (Auto) (25-47) % [place] % (Auto) (0-7) % Eos % (Auto) (0-6) % Baso % (Auto) (0-2) % Absolute Neuts (auto) (1.5-7.7) 10^3/ul Absolute Lymphs (auto) (1.0-4.8) 10^3/ul Absolute Monos (auto) (0-0.8) 10^3/ul Absolute Eos (auto) (0-0.6) 10^3/ul Absolute Basos (auto) (0-0.2) 10^3/ul Absolute Nucleated RBC 10^3/ul Nucleated RBC % INR (Anticoag Therapy) 1.03 H (0.77-1.02) Sodium (139-145) mmol/L Potassium (3.5-5.0) mmol/L Chloride (101-111) mmol/L Carbon Dioxide (22-32) mmol/L Anion Gap (2-11) mmol/L BUN (6-24) mg/dL Creatinine (0.67-1.17) mg/dL Est GFR ( Amer) (>60) Est GFR (Non-Af Amer) (>60) BUN/Creatinine Ratio (8-20) Glucose (70-100) mg/dL Lactic Acid 0.9 (0.5-2.0) mmol/L Calcium (8.6-10.3) mg/dL Magnesium (1.9-2.7) mg/dL Total Bilirubin (0.2-1.0) mg/dL AST (13-39) U/L ALT (7-52) U/L Alkaline Phosphatase (34-104) U/L Total Creatine Kinase (10-223) U/L Troponin I Total Protein (6.4-8.9) g/dL Albumin (3.2-5.2) g/dL Globulin (2-4) g/dL Albumin/Globulin Ratio (1-3) TSH Salicylates Acetaminophen Influenza A (Rapid) (Negative) Influenza B (Rapid) (Negative) Microbiology and Other Data: Microbiology 09/07/17 16:00 Gram Stain - Final Sputum Expectorated Assess/Plan/Problems-Billing Assessment: - Patient Problems (1) Pneumonia Current Visit: Yes Status: Acute Code(s): J18.9 - PNEUMONIA, UNSPECIFIED ORGANISM SNOMED Code(s): 552055998 Comment: Change to po antibiotics. Pt pulled out 3 IV's. (2) Advanced dementia Current Visit: Yes Status: Acute Code(s): F03.90 - UNSPECIFIED DEMENTIA WITHOUT BEHAVIORAL DISTURBANCE SNOMED Code(s): 37843883 Comment: I discussed management and prognosis with his . She has a good understandng of his dx. She has good support at home, including [employer]. I note he had a home SP swallow eval about 2 weeks ago.
[2017-09-08] MEDS: Azithromycin TAB* 250 MG PO SCH (10:13)
[2017-09-08] MEDS: ceFUROXime TAB(*) 250 MG PO SCH ×2 (10:13→19:46)
[2017-09-08] MEDS ORDERED: cefTRIAXone VIAL(*) 1,000 MG in NS 0.9% 50 ML* 50 ML IVPB SCH (16:00)
[2017-09-08] MEDS ORDERED: Azithromycin IV(*) 500 MG in NS 0.9% 250 ML* 250 ML IVPB SCH (22:00)
[2017-09-09] MEDS: Heparin VIAL(*) 5000 UNITS/ML VIAL (FIVE THOUSAND) SUBCUT SCH ×3 (04:23→20:08)
[2017-09-09] MEDS: Niacin ER TAB* 500 MG PO SCH (08:24)
[2017-09-09] MEDS: Azithromycin TAB* 250 MG PO SCH (08:24)
[2017-09-09] MEDS: Memantine TAB* 10 MG PO SCH ×2 (08:24→20:29)
[2017-09-09] MEDS: Donepezil TAB* 5 MG PO SCH (08:24)
[2017-09-09] MEDS: ceFUROXime TAB(*) 250 MG PO SCH (08:24)
--- NOTE | 2017-09-09 10:38 | PN ---
Progress Note - Progress Note Date of Service: 09/09/17 Note: Time spent on discharge 40 minutes.
--- NOTE | 2017-09-09 11:27 | PN ---
Progress Note - Progress Note Date of Service: 09/09/17 Note: I spoke with the patient's son. The family does NOT have resources to care for the patient at home and they request SNF placement. I converted his antibiotics to suspensions as he does not do well with pills.
--- NOTE | 2017-09-09 15:48 | DS ---
CC: Dr. Bates.* DISCHARGE SUMMARY: DATE OF ADMISSION: 09/07/17 DATE OF DISCHARGE: 09/09/17 HISTORY: This 77-year-old man presented with weakness and cough. He has advanced dementia and the history was obtained from the family. His is present at his bedside most of everyday. The history is detailed in the admission note. He had a very small infiltrate on his chest x-ray in the right base. I note that previously at home he had had an outpatient swallowing eval by a speech pathologist and the family was told he could tolerate an unrestricted diet. The patient was given intravenous fluids, ceftriaxone, and azithromycin. He did well in the hospital. Clinically he was very stable. His lung exam was clear. He was breathing comfortably without a cough. He was afebrile. His white blood count was 12.2 on 09/07/17 and 12.0 on 09/08/17. The family does not have adequate resources to care for him at home. The patient will be placed in an SNF when he is medically stable. FINAL DIAGNOSES: 1. Pneumonia. 2. Dementia. DISCHARGE MEDICATIONS: 1. Azithromycin suspension 200 mg daily for 3 days. 2. Cefuroxime suspension 250 mg b.i.d. for 5 days. 3. Nitroglycerin 0.4 mg sublingual every 5 minutes p.r.n. 4. Memantine 10 mg b.i.d. 5. Donepezil 10 mg daily. 6. Acetaminophen 500 to 1000 mg every 8 hours p.r.n. [id number]/[facility] #: [id number] [facility]TD[facility]
[2017-09-09] MEDS: CEFUROXIME 250 MG/5 ML PO SCH (20:29)
[2017-09-10] MEDS: Heparin VIAL(*) 5000 UNITS/ML VIAL (FIVE THOUSAND) SUBCUT SCH ×3 (05:46→21:40)
[2017-09-10] MEDS: Donepezil TAB* 5 MG PO SCH (09:49)
[2017-09-10] MEDS: Azithromycin 100 MG/5 ML SUSP* 100 MG/5 ML BTL PO SCH (09:49)
[2017-09-10] MEDS: Niacin ER TAB* 500 MG PO SCH (09:49)
[2017-09-10] MEDS: Memantine TAB* 10 MG PO SCH ×2 (09:49→21:50)
[2017-09-10] MEDS: CEFUROXIME 250 MG/5 ML PO SCH ×2 (09:53→21:50)
--- NOTE | 2017-09-10 14:17 | PN ---
Subjective Date of Service: 09/10/17 Interval History: Patient seen and examined at bedside. Denies fever, chills, chest discomfort, shortness of breath, N/V/D. Pt reports a mild occasional cough. Discussed with family that Psychiatry would consult today for assistance with behaviors. Family History: Unchanged from Admission Social History: Unchanged from Admission Past Medical History: Unchanged from Admission Objective Active Medications: Acetaminophen (Tylenol Tab*) 650 mg PO Q4H PRN Reason: FEVER/PAIN Azithromycin (Zithromax 100 Mg/5 Ml Susp*) 250 mg PO DAILY [facility] Stop: 09/12/17 09:01 Cefuroxime Axetil (Ceftin Susp) 500 mg PO BID [facility] Stop: 09/13/17 21:01 Donepezil HCl (Aricept Tab*) 10 mg PO DAILY [facility] Haloperidol (Haldol Tab*) 0.5 mg PO TID PRN Reason: AGITATION - DANGEROUS Heparin Sodium (Porcine) (Heparin Vial(*)) 5,000 units SUBCUT Q8HR [facility] Memantine (Namenda Tab*) 10 mg PO BID [facility] Niacin (Niaspan Er Tab*) 2,000 mg PO DAILY [facility] Ondansetron HCl (Zofran Inj*) 4 mg IV Q6H PRN Reason: NAUSEA Quetiapine Fumarate (Seroquel Tab*) 50 mg PO BEDTIME [facility] Vital Signs - 8 hr 09/10/17 09/10/17 09/10/17 07:34 08:00 12:12 Temperature 97.9 F 97.5 F Pulse Rate 72 74 Respiratory 12 16 16 Rate Blood Pressure 151/87 134/75 (mmHg) O2 Sat by Pulse 99 98 Oximetry 09/10/17 12:16 Temperature 97.5 F Pulse Rate 74 Respiratory 16 Rate Blood Pressure 134/75 (mmHg) O2 Sat by Pulse 98 Oximetry Oxygen Devices in Use Now: None Appearance: NAD, sitting up in bed Ears/Nose/Mouth/Throat: Mucous Membranes Moist Respiratory: Symmetrical Chest Expansion and Respiratory Effort, Clear to Auscultation Cardiovascular: NL Sounds; No Murmurs; No JVD, RRR Abdominal: NL Sounds; No Tenderness; No Distention Extremities: No Edema Skin: No Rash or Ulcers Neurological: - - Alert and Oriented to Person, confused Nutrition: Taking PO's Result Diagrams: 09/08/17 06:20 09/08/17 06:20 Additional Lab and Data: Microbiology and Other Data: Microbiology 09/07/17 16:00 Gram Stain - Final Sputum Expectorated Assess/Plan/Problems-Billing Assessment: Mr. Robledo is a 77 yo male with PMH significant for prostate CA, bladder CA, CAD, TIA, CO and dementia who presented to the emergency room with complaints of weakness and fatigue and was found to have pneumonia. - Patient Problems (1) Pneumonia Code(s): J18.9 - PNEUMONIA, UNSPECIFIED ORGANISM SNOMED Code(s): 587648314 Comment: - Afebrile and mild leukocytosis - Continue azithromycin and cefuroximine (2) Advanced dementia Code(s): F03.90 - UNSPECIFIED DEMENTIA WITHOUT BEHAVIORAL DISTURBANCE SNOMED Code(s): 76974672 Comment: - Continue namenda - Discontinue Aricept (due to risk of prolonged Qtc with Seroquel) - Will start Seroquel at bedtime (3) Hypomagnesemia Code(s): E83.42 - HYPOMAGNESEMIA SNOMED Code(s): 335802805 Comment: - Received replacement on admission (4) History of prostate cancer Code(s): Z85.46 - PERSONAL HISTORY OF MALIGNANT NEOPLASM OF PROSTATE SNOMED Code(s): 574823091 Comment: - And bladder CA - Continue to follow with PCP/urology (5) History of coronary artery disease Code(s): Z86.79 - PERSONAL HISTORY OF OTHER DISEASES OF THE CIRCULATORY SYSTEM SNOMED Code(s): 266563371 Comment: - Asymptomatic - Continue Niacin (not currently on a beta-jocelyn or ASA) (6) DVT prophylaxis Code(s): QEL9713 - SNOMED Code(s): 982170360 Comment: - SQ heparin (7) DNR (do not resuscitate) Status and Disposition: Inpatient. Pt will bed placement and will be discharged once a SNF bed is available. Attending: Lou Preston
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
[2017-09-10] MEDS ORDERED: QUEtiapine TAB* 25 MG PO SCH ×2 (21:00)
[2017-09-11] MEDS: Heparin VIAL(*) 5000 UNITS/ML VIAL (FIVE THOUSAND) SUBCUT SCH ×3 (05:57→20:40)
[2017-09-11] MEDS: Azithromycin 100 MG/5 ML SUSP* 100 MG/5 ML BTL PO SCH (09:13)
[2017-09-11] MEDS: Niacin ER TAB* 500 MG PO SCH (09:13)
[2017-09-11] MEDS: CEFUROXIME 250 MG/5 ML PO SCH ×3 (09:14→20:51)
[2017-09-11] MEDS: Donepezil TAB* 5 MG PO SCH (09:14)
[2017-09-11] MEDS: Memantine TAB* 10 MG PO SCH ×2 (09:14→20:45)
--- NOTE | 2017-09-11 09:40 | PN ---
Subjective Date of Service: 09/11/17 Interval History: Patient seen and examined at bedside. Denies fever, chills, shortness of breath , chest discomfort, N/V/D. Pt continues to have combative behavior when staff attempt to do personal care. Family History: Unchanged from Admission Social History: Unchanged from Admission Past Medical History: Unchanged from Admission Objective Active Medications: Acetaminophen (Tylenol Tab*) 650 mg PO Q4H PRN Reason: FEVER/PAIN Azithromycin (Zithromax 100 Mg/5 Ml Susp*) 250 mg PO DAILY [facility] Stop: 09/12/17 09:01 Cefuroxime Axetil (Ceftin Susp) 500 mg PO BID [facility] Stop: 09/13/17 21:01 Haloperidol (Haldol Tab*) 0.5 mg PO TID PRN Reason: AGITATION - DANGEROUS Heparin Sodium (Porcine) (Heparin Vial(*)) 5,000 units SUBCUT Q8HR [facility] Memantine (Namenda Tab*) 10 mg PO BID [facility] Niacin (Niaspan Er Tab*) 2,000 mg PO DAILY [facility] Ondansetron HCl (Zofran Inj*) 4 mg IV Q6H PRN Reason: NAUSEA Quetiapine Fumarate (Seroquel Tab*) 25 mg PO BEDTIME [facility] Vital Signs - 8 hr 09/11/17 09/11/17 09/11/17 07:32 07:56 09:24 Temperature 98.0 F Pulse Rate 79 Respiratory 14 16 Rate Blood Pressure 142/68 (mmHg) O2 Sat by Pulse 99 93 Oximetry Oxygen Devices in Use Now: None Appearance: NAD, laying in bed Ears/Nose/Mouth/Throat: Mucous Membranes Moist Respiratory: Symmetrical Chest Expansion and Respiratory Effort, Clear to Auscultation - , diminished Cardiovascular: NL Sounds; No Murmurs; No JVD, RRR Extremities: No Edema Skin: No Rash or Ulcers Neurological: NL Muscle Strength and Tone, - - Alert and Oriented to Self, confused Nutrition: Taking PO's Result Diagrams: 09/08/17 06:20 09/08/17 06:20 Additional Lab and Data: Microbiology and Other Data: Microbiology 09/07/17 16:00 Gram Stain - Final Sputum Expectorated Assess/Plan/Problems-Billing Assessment: Mr. Robledo is a 77 yo male with PMH significant for prostate CA, bladder CA, CAD, TIA, [place] and dementia who presented to the emergency room with complaints of weakness and fatigue and was found to have pneumonia. - Patient Problems (1) Pneumonia Code(s): J18.9 - PNEUMONIA, UNSPECIFIED ORGANISM SNOMED Code(s): 987743177 Comment: - Afebrile and mild leukocytosis - Continue azithromycin and cefuroximine (2) Advanced dementia Code(s): F03.90 - UNSPECIFIED DEMENTIA WITHOUT BEHAVIORAL DISTURBANCE SNOMED Code(s): 42353177 Comment: - Discontinue Aricept (due to risk of prolonged Qtc with Seroquel) - Continue namenda and Seroquel at bedtime (3) Hypomagnesemia Code(s): E83.42 - HYPOMAGNESEMIA SNOMED Code(s): 118114076 Comment: - Received replacement on admission (4) History of prostate cancer Code(s): Z85.46 - PERSONAL HISTORY OF MALIGNANT NEOPLASM OF PROSTATE SNOMED Code(s): 283229366 Comment: - And bladder CA - Continue to follow with PCP/urology (5) History of coronary artery disease Code(s): Z86.79 - PERSONAL HISTORY OF OTHER DISEASES OF THE CIRCULATORY SYSTEM SNOMED Code(s): 611147738 Comment: - Asymptomatic - Continue Niacin (not currently on a beta-jocelyn or ASA) (6) DVT prophylaxis Code(s): JXV5881 - SNOMED Code(s): 067140157 Comment: - SQ heparin (7) DNR (do not resuscitate) Status and Disposition: Inpatient. Pt will need placement and will be discharged once a SNF bed is available.
--- NOTE | 2017-09-11 14:11 | CONSULT ---
Identification - Patient Identification Reason for Psychiatric Consultation: Violent Behavior -: Patient is a 77 year old, M admitted on 09/07/17. - MHU Identification Employment Status: Disabled Hx Psychiatric Hospitalization: No History - Objective HPI: Psychiatry returns to follow up with Mr. Robledo. Unfortunately, his family is not yet present today, but we are able to get feedback from his assigned RN, Mariya Wallace, who reports that he woke up well rested this morning and not overly sedate, but has remained intermittently agitated and combative during cleanings and routine bowel management. The patient is confused with obvious deficits in memory and executive functioning. He appears significantly more alert than yesterday. Lab Results: Laboratory Tests 09/07/17 09/08/17 09/08/17 16:00 06:20 06:20 WBC 12.0 H RBC 3.94 L Hgb 11.9 L Hct 34 L MCV 87 MCH 30 MCHC 35 RDW 14 Plt Count 312 MPV 6.1 L Neut % (Auto) 54.1 Lymph % (Auto) 35.7 [place] % (Auto) 7.6 H Eos % (Auto) 2.0 Baso % (Auto) 0.6 Absolute Neuts (auto) 6.5 Absolute Lymphs (auto) 4.3 Absolute Monos (auto) 0.9 H Absolute Eos (auto) 0.2 Absolute Basos (auto) 0.1 Absolute Nucleated RBC 0 Nucleated RBC % 0 INR (Anticoag Therapy) 1.05 H Sodium Potassium Chloride Carbon Dioxide Anion Gap BUN Creatinine Est GFR ( Amer) Est GFR (Non-Af Amer) BUN/Creatinine Ratio Glucose Calcium Ammonia 45 09/08/17 06:20 WBC RBC Hgb Hct MCV MCH MCHC RDW Plt Count MPV Neut % (Auto) Lymph % (Auto) [place] % (Auto) Eos % (Auto) Baso % (Auto) Absolute Neuts (auto) Absolute Lymphs (auto) Absolute Monos (auto) Absolute Eos (auto) Absolute Basos (auto) Absolute Nucleated RBC Nucleated RBC % INR (Anticoag Therapy) Sodium 137 L Potassium 4.2 Chloride 105 Carbon Dioxide 25 Anion Gap 7 BUN 10 Creatinine 1.07 Est GFR ( Amer) 86.0 Est GFR (Non-Af Amer) 66.8 BUN/Creatinine Ratio 9.3 Glucose 95 Calcium 8.3 L Ammonia Exam Appearance: Thin Framed Hygiene: Normal Grooming: Well Kept Psychomotor Activities: Normal Exhibits Abnormal Movement: No Attitude and Relatedness: Withdrawn Eye Contact: Fair - Speech Quality: Unpressured Latencies: Long Quantity: Terse Patient's Decription of Mood: "Okay" Observed Affect: Fair Affect Consistent with: Euthymia Patient's Thought Process: Disorganized Thought Content: No Passive Wish, No Suicidal Planning, No Homicidal Ideation, No Paranoid Ideation Experiencing Hallucinations: No, Sensorium is Clear Type of Hallucinations: Visual: No, Auditory: No, Command: No Level of Consciousness: Alert Orientation: No Intact, No Orientated to Time, No Orientated to Place, No Orientated to Person Impulse Control: Poor Insight and Judgement: Impaired Impression - Impression Clinical Impression: 77 y.o. 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 Inpatient DSM-V Dx: F02.81 Merits Inpatient Hospitalization: No Problem List - MHU Problems Type of Problem: Impulse Control Status of Problem: Active Plan - Treatment Plan Treatment Plan: The patient is tolerating the trial of quetiapine well and we will increase the dose from 25 to 50mg PO qhs to improve agitation and combative behavior. Patient awaits referral to a SNF. Psychiatry will continue to follow. Continued Medication Management: Start Medication Medications: Current Medications Acetaminophen (Tylenol Tab*) 650 mg PO Q4H PRN PRN Reason: FEVER/PAIN Last Admin: 09/08/17 03:00 Dose: 650 mg Azithromycin (Zithromax 100 Mg/5 Ml Susp*) 250 mg PO DAILY [facility] Stop: 09/12/17 09:01 Last Admin: 09/11/17 09:13 Dose: 250 mg Cefuroxime Axetil (Ceftin Susp) 500 mg PO BID [facility] Stop: 09/13/17 21:01 Last Admin: 09/11/17 13:30 Dose: 500 mg Haloperidol (Haldol Tab*) 0.5 mg PO TID PRN PRN Reason: AGITATION - DANGEROUS Last Admin: 09/07/17 20:06 Dose: 0.5 mg Heparin Sodium (Porcine) (Heparin Vial(*)) 5,000 units SUBCUT Q8HR [facility] Last Admin: 09/11/17 12:05 Dose: Not Given Memantine (Namenda Tab*) 10 mg PO BID [facility] Last Admin: 09/11/17 09:14 Dose: 10 mg Niacin (Niaspan Er Tab*) 2,000 mg PO DAILY [facility] Last Admin: 09/11/17 09:13 Dose: 2,000 mg
[2017-09-11] MEDS ORDERED: QUEtiapine TAB* 25 MG PO SCH (21:00)
[2017-09-12] MEDS: Heparin VIAL(*) 5000 UNITS/ML VIAL (FIVE THOUSAND) SUBCUT SCH (05:50)
[2017-09-12] MEDS: Niacin ER TAB* 500 MG PO SCH ×2 (10:16→11:23)
[2017-09-12] MEDS: Azithromycin 100 MG/5 ML SUSP* 100 MG/5 ML BTL PO SCH ×2 (10:16→11:22)
[2017-09-12] MEDS: Memantine TAB* 10 MG PO SCH ×2 (10:16→11:23)
[2017-09-12] MEDS: CEFUROXIME 250 MG/5 ML PO SCH ×2 (10:17→11:23)
--- NOTE | 2017-09-12 10:42 | PN ---
Subjective Date of Service: 09/12/17 Interval History: Patient seen and examined at bedside. Pt states "yes" to every question asked today. Pt also continues to have a little bit of agitation when being touched. Family History: Unchanged from Admission Social History: Unchanged from Admission Past Medical History: Unchanged from Admission Objective Active Medications: Acetaminophen (Tylenol Tab*) 650 mg PO Q4H PRN Reason: FEVER/PAIN Cefuroxime Axetil (Ceftin Susp) 500 mg PO BID [facility] Stop: 09/13/17 21:01 Haloperidol (Haldol Tab*) 0.5 mg PO TID PRN Reason: AGITATION - DANGEROUS Heparin Sodium (Porcine) (Heparin Vial(*)) 5,000 units SUBCUT Q8HR [facility] Memantine (Namenda Tab*) 10 mg PO BID [facility] Niacin (Niaspan Er Tab*) 2,000 mg PO DAILY [facility] Quetiapine Fumarate (Seroquel Tab*) 50 mg PO BEDTIME [facility] Vital Signs - 8 hr 09/12/17 09/12/17 09/12/17 02:41 03:30 07:41 Temperature 100.0 F Pulse Rate 83 71 Respiratory 16 16 Rate Blood Pressure 124/67 (mmHg) O2 Sat by Pulse 95 96 96 Oximetry Oxygen Devices in Use Now: None Appearance: NAD, laying in bed Ears/Nose/Mouth/Throat: Mucous Membranes Moist Respiratory: Symmetrical Chest Expansion and Respiratory Effort, Clear to Auscultation Cardiovascular: NL Sounds; No Murmurs; No JVD, RRR Abdominal: NL Sounds; No Tenderness; No Distention Extremities: No Edema Skin: No Rash or Ulcers Neurological: - - Alert and Oriented to self, confused Nutrition: Taking PO's Result Diagrams: 09/08/17 06:20 09/08/17 06:20 Additional Lab and Data: Microbiology and Other Data: Microbiology 09/07/17 16:00 Gram Stain - Final Sputum Expectorated Assess/Plan/Problems-Billing Assessment: Mr. Robledo is a 77 yo male with PMH significant for prostate CA, bladder CA, CAD, TIA, [place] and dementia who presented to the emergency room with complaints of weakness and fatigue and was found to have pneumonia. - Patient Problems (1) Pneumonia Code(s): J18.9 - PNEUMONIA, UNSPECIFIED ORGANISM SNOMED Code(s): 182293425 Comment: - Afebrile and mild leukocytosis - Continue cefuroximine (2) Advanced dementia Code(s): F03.90 - UNSPECIFIED DEMENTIA WITHOUT BEHAVIORAL DISTURBANCE SNOMED Code(s): 34200655 Comment: - Discontinued Aricept (due to risk of prolonged Qtc with Seroquel) - Continue namenda and Seroquel at bedtime (3) Hypomagnesemia Code(s): E83.42 - HYPOMAGNESEMIA SNOMED Code(s): 585207848 Comment: - Received replacement on admission (4) History of prostate cancer Code(s): Z85.46 - PERSONAL HISTORY OF MALIGNANT NEOPLASM OF PROSTATE SNOMED Code(s): 138029246 Comment: - And bladder CA - Continue to follow with PCP/urology (5) History of coronary artery disease Code(s): Z86.79 - PERSONAL HISTORY OF OTHER DISEASES OF THE CIRCULATORY SYSTEM SNOMED Code(s): 354699373 Comment: - Asymptomatic - Continue Niacin (not currently on a beta-jocelyn or ASA) (6) DVT prophylaxis Code(s): RRL8387 - SNOMED Code(s): 588428608 Comment: - SQ heparin (7) DNR (do not resuscitate) Status and Disposition: Inpatient. Stable for discharge to [facility].
--- NOTE | 2017-09-12 11:50 | DS ---
CC: [facility]; Dr. Robb Bates* DISCHARGE SUMMARY: DATE OF ADMISSION: 09/07/17 DATE OF DISCHARGE: 09/12/17 ATTENDING PHYSICIAN: Lou Preston MD* (dictated by Autumn Anguiano NP). PRIMARY CARE PROVIDER: Dr. Robb Bates. PRIMARY DIAGNOSES: 1. Pneumonia. 2. Hypomagnesia. SECONDARY DIAGNOSES: 1. Dementia. 2. History of prostate and bladder cancer. 3. History of coronary artery disease. STUDIES WHILE IN THE HOSPITAL: Chest x-ray on 09/07/17. Radiologist's impression: Small right basilar infiltrate. DISCHARGE MEDICATIONS: New home medications: 1. Cefuroxime 500 mg oral twice daily for 3 more doses. 2. Seroquel 50 mg oral daily at bedtime. Continued Home Medications: 1. Niacin 2000 mg oral daily. 2. Nitroglycerin 0.4 mg sublingual every 5 minutes as needed for chest pain. 3. Namenda 10 mg oral twice daily. 4. Acetaminophen 500 to 1000 mg oral every 8 hours as needed for pain. 5. Haldol 0.5 mg oral 3 times daily as needed for dangerous agitation. Discontinued home medication: Aricept . HISTORY OF PRESENT ILLNESS/HOSPITAL COURSE: Mr. Robledo is a 77-year-old male with past medical history significant for coronary artery disease, TIA, dementia , bladder and prostate cancer, who over the last couple of weeks had been not acting like himself and more confused. He was also noted to be coughing. He was also becoming more weak. Over the few days prior to his presentation, he was unable to get warm and had been complaining of being very cold. He felt as though he may have been having fevers. He was having decreased appetite. He had been more lethargic. Due to these concerns, she had him brought to the emergency room for further evaluation. While in the emergency room, the patient had a chest x-ray showing a right basilar infiltrate. He had a mild leukocytosis of 12.2, noted to have a low mag of 1.7. He was started on IV antibiotics, received a liter of IV fluids in the emergency room and hospitalists were asked to evaluate the patient for admission. While in the hospital, the patient pulled out his IV, so he was transitioned to oral antibiotics. He continued on mild leukocytosis. His mild hyponatremia resolved during his stay. He was initially planned for discharge on 09/09/17, but it was felt that his was unable to care for him at home and plans were made to have the patient go to a senior care facility. Due to the patient' s combative behavior, Psychiatry saw the patient for medication assistance for this. He was started on Seroquel and was tolerating this well. His combative behaviors did improve slightly. He has been afebrile. Please note Mr. Robledo is stable for discharge to [facility] today. Vital signs are as follows: Temperature 100.0, pulse 71, respiratory rate 16, O2 saturation 96% on room air, blood pressure 124/67. DISCHARGE PLAN: Mr. Robledo will be discharged to [facility]. Activity as tolerated. He should be on a heart-healthy diet. In regards to his pneumonia, he has completed a course of azithromycin and needs 3 more doses of cefuroxime to complete his course of that. He should be continued on Seroquel every evening to help with his agitation and combative behavior. In regards to his dementia, for now he has been continued on his Namenda. This could be considered to be stopped going forward. His Aricept was stopped due to the risk of QT prolongation with the Haldol p.r.n. and Seroquel he is receiving. The patient has been resumed on his other usual home medications. He should be a seen by a provider at [facility] and follow up per their protocol. He should return to the emergency room for any chest pain, shortness of breath. This is a summarized report of a complex medical history and hospital stay. For further details, please see the entire medical record. TIME SPENT: Time for this discharge was approximately 50 minutes, greater than half of that was spent with the patient and family reviewing plan of care. CONDITION ON DISCHARGE: Stable. AUTUMN NEWMAN, NEDA [id number]/[facility] #: [id number] LEX
--- NOTE | 2017-09-12 12:03 | CONSULT ---
Identification - Patient Identification Reason for Psychiatric Consultation: Violent Behavior -: Patient is a 77 year old, M admitted on 09/07/17. - MHU Identification Employment Status: Disabled Hx Psychiatric Hospitalization: No History - Objective HPI: Jhony is awake but makes limited responses to simple questions and does not appear oriented to his situation. I am told by staff that he is tolerating the 50mg dose of nightly quetiapine well and his aggression during staff interactions is perhaps less marked. Jhony has been accepted for SNF placement at [facility] and is pending discharge today. He voices no questions nor complaints. Lab Results: Laboratory Tests 09/07/17 09/08/17 09/08/17 16:00 06:20 06:20 WBC 12.0 H RBC 3.94 L Hgb 11.9 L Hct 34 L MCV 87 MCH 30 MCHC 35 RDW 14 Plt Count 312 MPV 6.1 L Neut % (Auto) 54.1 Lymph % (Auto) 35.7 [place] % (Auto) 7.6 H Eos % (Auto) 2.0 Baso % (Auto) 0.6 Absolute Neuts (auto) 6.5 Absolute Lymphs (auto) 4.3 Absolute Monos (auto) 0.9 H Absolute Eos (auto) 0.2 Absolute Basos (auto) 0.1 Absolute Nucleated RBC 0 Nucleated RBC % 0 INR (Anticoag Therapy) 1.05 H Sodium Potassium Chloride Carbon Dioxide Anion Gap BUN Creatinine Est GFR ( Amer) Est GFR (Non-Af Amer) BUN/Creatinine Ratio Glucose Calcium Ammonia 45 09/08/17 06:20 WBC RBC Hgb Hct MCV MCH MCHC RDW Plt Count MPV Neut % (Auto) Lymph % (Auto) [place] % (Auto) Eos % (Auto) Baso % (Auto) Absolute Neuts (auto) Absolute Lymphs (auto) Absolute Monos (auto) Absolute Eos (auto) Absolute Basos (auto) Absolute Nucleated RBC Nucleated RBC % INR (Anticoag Therapy) Sodium 137 L Potassium 4.2 Chloride 105 Carbon Dioxide 25 Anion Gap 7 BUN 10 Creatinine 1.07 Est GFR ( Amer) 86.0 Est GFR (Non-Af Amer) 66.8 BUN/Creatinine Ratio 9.3 Glucose 95 Calcium 8.3 L Ammonia Exam Appearance: Thin Framed Hygiene: Normal Grooming: Well Kept Psychomotor Activities: Normal Exhibits Abnormal Movement: No Attitude and Relatedness: Withdrawn Eye Contact: Fair - Speech Quality: Unpressured Latencies: Long Quantity: Terse Patient's Decription of Mood: "Okay" Observed Affect: Fair Affect Consistent with: Euthymia Patient's Thought Process: Disorganized Thought Content: No Passive Wish, No Suicidal Planning, No Homicidal Ideation, No Paranoid Ideation Experiencing Hallucinations: No, Sensorium is Clear Type of Hallucinations: Visual: No, Auditory: No, Command: No Level of Consciousness: Alert Orientation: No Intact, No Orientated to Time, No Orientated to Place, No Orientated to Person Impulse Control: Poor Insight and Judgement: Impaired Impression - Impression Clinical Impression: 77 y.o. 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 Inpatient DSM-V Dx: F02.81 Merits Inpatient Hospitalization: No Problem List - MHU Problems Type of Problem: Impulse Control Status of Problem: Active Plan - Treatment Plan Treatment Plan: The patient is tolerating the trial of quetiapine 50mg PO qhs well and does demonstrate some improvement in agitation and combative behavior. Patient awaits d/c today to [facility]. Psychiatry will sign off. Thank you for allowing us to participating in the care of this patient and his family. Continued Medication Management: Start Medication Medications: Current Medications Acetaminophen (Tylenol Tab*) 650 mg PO Q4H PRN PRN Reason: FEVER/PAIN Last Admin: 09/08/17 03:00 Dose: 650 mg Cefuroxime Axetil (Ceftin Susp) 500 mg PO BID [facility] Stop: 09/13/17 21:01 Last Admin: 09/12/17 11:23 Dose: 500 mg Haloperidol (Haldol Tab*) 0.5 mg PO TID PRN PRN Reason: AGITATION - DANGEROUS Last Admin: 09/07/17 20:06 Dose: 0.5 mg Heparin Sodium (Porcine) (Heparin Vial(*)) 5,000 units SUBCUT Q8HR [facility] Last Admin: 09/12/17 05:50 Dose: Not Given Memantine (Namenda Tab*) 10 mg PO BID [facility] Last Admin: 09/12/17 11:23 Dose: Not Given Niacin (Niaspan Er Tab*) 2,000 mg PO DAILY [facility] Last Admin: 09/12/17 11:23 Dose: Not Given Quetiapine Fumarate (Seroquel Tab*) 50 mg PO BEDTIME [facility] Last Admin: 09/11/17 20:45 Dose: 50 mg - Discharge Plan Discharge Plan: Outpatient Follow Up
[2017-09-14 10:17] VITALS: BP 137/83
== END 2017-09-12 13:05 | DRG 194 ==
LOC: ED 13:12 → MED 15:55
PROVIDERS: ADMIT Internal Medicine; ATTEND Internal Medicine
DX: J18.9 Pneumonia, unspecified organism (principal); E87.1 Hypo-osmolality and hyponatremia; F02.81 Dementia in other diseases classified elsewhere, unspecified severity, with behavioral disturbance; E83.42 Hypomagnesemia; G30.9 Alzheimer's disease, unspecified; I25.10 Atherosclerotic heart disease of native coronary artery without angina pectoris; Z85.46 Personal history of malignant neoplasm of prostate; Z85.51 Personal history of malignant neoplasm of bladder; Z95.5 Presence of coronary angioplasty implant and graft; Z86.73 Personal history of transient ischemic attack (TIA), and cerebral infarction without residual deficits; I25.2 Old myocardial infarction; Z79.1 Long term (current) use of non-steroidal anti-inflammatories (NSAID); Z79.899 Other long term (current) drug therapy; Z88.2 Allergy status to sulfonamides; Z87.891 Personal history of nicotine dependence; Z66 Do not resuscitate
CPT/HCPCS: 36415; 71045; 80048; 80053; 80329; 82140; 82550; 83605; 83735; 84443; 84484; 85025; 85610; 87040; 87070; 87205; 87502; 93005; 99284; A9270-GY; G0480; G8978-GP-CM; G8979-GP-CI; J0456; J0696; J1644; J3486